=== PATIENT | female | born 1980 | race Caucasian/White ===

== ENCOUNTER 2017-12-21 17:53 | Emergency (ER) | payer OTHER ==
[~2017-12-21] VITALS: Ht 165.1 cm; Wt 89.9 kg
[2017-12-21 19:23] LABS: HEMOGLOBIN 12.9 G/DL (11.9-15.5); MCH 30.4 PG (29.0-34.0); MCHC 33.1 G/DL (30.0-36.0); MCV 91.8 FL (83-99); PLATELET COUNT 435 K/uL (156-360); RBC DIS.WIDTH-SD 43.3 % (39-53); RED BLOOD COUNT 4.25 M/uL (3.80-5.20); WHITE BLOOD COUNT 10.5 K/uL (4.1-10.2)
[2017-12-21 19:32] LABS: ALBUMIN 4.4 g/dL (3.2-4.8)
[2017-12-21 19:33] LABS: CHLORIDE 106 mEq/L (99-109); POTASSIUM 3.8 mEq/L (3.7-5.4); SODIUM 140 mEq/L (136-147)
[2017-12-21 19:35] LABS: GLUCOSE 94 mg/dL (70-99)
[2017-12-21 19:37] LABS: TOTAL BILIRUBIN 0.2 mg/dL (0.0-1.0)
[2017-12-21 19:38] LABS: ALKALINE PHOSPHATASE 53 IU/L (3-129)
[2017-12-21 19:40] LABS: AST (GOT) 16 IU/L (2-34); CREATININE 0.7 mg/dL (0.6-1.3); GFR ESTIMATE (CALCULATED) > 59 mL/min/; UREA NITROGEN (BUN) 11 mg/dL (9-23)
[2017-12-21 19:42] LABS: ALT (GPT) 16 IU/L (3-49)
[2017-12-21 19:49] LABS: QUANTITATIVE HCG < 4.0 MIU/ML
[2017-12-21 20:50] LABS: APPEARANCE SL.HAZY ((CLEAR)); BILIRUBIN NEGATIVE; BLOOD MODERATE; COLOR YELLOW ((YELLOW)); GLUCOSE (STRIP) NEGATIVE; KETONES NEGATIVE; LEUKOCYTES NEGATIVE; NITRITE NEGATIVE; PROTEIN (STRIP) NEGATIVE; SPECIFIC GRAVITY 1.009 (1.000-1.030); UROBILINOGEN 0.2 MG/DL (0.2-1.0)
[2017-12-21 21:07] LABS: BACTERIA RARE /HPF; EPITHELIAL CELLS 1+ /HPF; MUCUS TRACE /LPF; RED BLOOD CELLS 0-5 /HPF (0-5); UCUL ADDED? NO; WHITE BLOOD CELLS 0-5 /HPF (0-5)
[2017-12-21] MEDS ORDERED: ZOFRAN ODT4 MG PO (22:48)
[2017-12-21 23:04] VITALS: BP 131/77
== END 2017-12-21 23:04 | disposition home or self-care (01) ==
LOC: EXP 17:53 → EME 17:53 → EXP 23:04
DX: R10.11 Right upper quadrant pain (principal); R10.816 Epigastric abdominal tenderness; R11.2 Nausea with vomiting, unspecified; M54.5 Low back pain
CPT/HCPCS: 76705; 80053; 81003; 84702; 85027; 99281; 99284

== ENCOUNTER → 2018-01-18 | Outpatient (CLI) | payer OTHER ==
[~2018-01-18] VITALS: Ht 166.4 cm; Wt 86.2 kg
[~2018-01-18] MED LIST: ADVAIR 100/501 DISK IH; BUSPAR5 MG PO; HYDROCHLOROTHIA25 MG PO; JUNEL FE 1/21 TABLET PO; PROAIR HFA8.5 GM IH; ZOFRAN ODT4 MG PO
== END | disposition home or self-care (01) ==
LOC: AMB 07:00
DX: K20.9 Esophagitis, unspecified (principal); K44.9 Diaphragmatic hernia without obstruction or gangrene; K22.2 Esophageal obstruction; E66.09 Other obesity due to excess calories; Z83.3 Family history of diabetes mellitus; Z82.49 Family history of ischemic heart disease and other diseases of the circulatory system
CPT/HCPCS: 88305; J2250

== ENCOUNTER → 2018-02-01 | Outpatient (CLI) | payer OTHER | END | disposition home or self-care (01) | LOC: NUC 07:21 | DX: R10.11 Right upper quadrant pain (principal) | CPT/HCPCS: 78227; A9537; J2805 ==